=== PATIENT | female | born 1990 | race Hispanic/Latino ===

== ENCOUNTER 2017-07-05 17:15 | Emergency (ER) | payer MEDICAID ==
[2017-07-05] MEDS: OXYCODONE/APAP 5MG/325MG(BULK FOR ED) 1 TABLET PO (18:02)
== END 2017-07-05 18:05 | disposition home or self-care (01) ==
LOC: M ED 17:15
DX: F11.10 Opioid abuse, uncomplicated (principal); Z79.899 Other long term (current) drug therapy
CPT/HCPCS: 99282

== ENCOUNTER 2017-07-06 13:45 | Emergency (ER) | payer MEDICAID, OTHER | END 2017-07-06 16:26 | disposition home or self-care (01) | LOC: M ED 13:45 | DX: F11.20 Opioid dependence, uncomplicated (principal); Z72.89 Other problems related to lifestyle; J45.909 Unspecified asthma, uncomplicated; Z72.0 Tobacco use | CPT/HCPCS: 99283 ==